=== PATIENT | female | born 1960 | race American Indian/Alaskan Native ===

== ENCOUNTER 2018-01-28 13:34 | Observation (INO) | payer SELFPAY ==
[2018-01-28] MEDS ORDERED: ASPIRIN PO ONE (13:46)
[2018-01-28] MEDS ORDERED: NITROSTAT SL PRN (14:21)
--- NOTE | 2018-01-28 14:23 | Emergency Department Report ---
Blank Doc - Documentation Documentation: Patient is a 57-year-old black female who is complaining of chest discomfort. Patient states a pressure sensation with intermittent sharp pains. There is mild shortness of breath associated. Patient is is attributing most of the pain to a stress however there is no exertional component associated with chest pain. Patient had a recent trip to and from [place] to [facility]. Patient states pain started approximately 2 days after this. On focused physical exam patient' s head is lungs are clear to auscultation abdomen soft nontender heart tones are normal. Patient will be placed on a monitor and troponins labs EKG and chest x-ray will be done.
[2018-01-28 14:42] LABS: BUN/Creatinine Ratio 10; Blood Urea Nitrogen 8 mg/dL (7-17); Calcium 9.7 mg/dL (8.4-10.2); Hemolysis Index 76
--- NOTE | 2018-01-28 15:06 | XRay Report ---
FINAL REPORT EXAM: XR CHEST ROUTINE 2V HISTORY: chest pain TECHNIQUE: Chest, PA and lateral PRIORS: None. FINDINGS: The heart size is normal. Mediastinal contours are normal. Pulmonary vasculature is not congested. The lungs are clear. There are no pleural effusion seen. There is no evidence of pneumothorax. IMPRESSION: There is no acute abnormality identified.
[2018-01-28 15:21] LABS: Basophils % (Auto) 0.1 % (0.0-1.8); Eosinophils # (Auto) 0.1 K/mm3 (0.0-0.4); Eosinophils % (Auto) 1.1 % (0.0-4.3); Hematocrit 38.9 % (30.3-42.9); Hemoglobin 13.2 gm/dl (10.1-14.3); Lymphocytes % (Auto) 32.5 % (13.4-35.0); Mean Corpuscular HGB Conc 34 % (30-34); Mean Corpuscular Hemoglobin 30 pg (28-32); Mean Corpuscular Volume 89 fl (79-97); Monocytes # (Auto) 0.4 K/mm3 (0.0-0.8); Monocytes % (Auto) 5.6 % (0.0-7.3); Platelet Count 280 K/mm3 (140-440); Red Blood Count 4.37 M/mm3 (3.65-5.03); Red Cell Distribution Width 14.3 % (13.2-15.2)
--- NOTE | 2018-01-28 15:47 | Emergency Department Report ---
ED Chest Pain HPI - General Chief Complaint: Chest Pain Stated Complaint: CHEST PAIN/HEADACHE Time Seen by Provider: 01/28/18 14:05 Source: patient Mode of arrival: Ambulatory Limitations: No Limitations - History of Present Illness Initial Comments: 57-year-old female presents to ED with complaints of chest pain. Patient states pain is substernal and radiating into left arm and neck. Usually occurs at rest. She reports pain as sharp and also pressure-like. She denies shortness of breath, nausea, vomiting, diaphoresis. Pt reports driving to [place] and back recently. Denies leg pain or swelling. No PCP. No recent stress test MD Complaint: chest pain -: days(s) (4) Pain Location: substernal Pain Radiation: LUE, neck Severity: moderate Quality: sharp, pressure Consistency: intermittent Improves With: nothing Worsens With: nothing re: denies: nausea, vomting, diaphoresis, dyspnea Other Symptoms: denies: cough, fever, leg swelling Treatments Prior to Arrival: aspirin - Related Data Allergies Allergy/AdvReac Type Severity Reaction Status Date / Time No Known Allergies Allergy Unverified 01/28/18 13:44 Heart Score - HEART Score History: Slightly suspicious EKG: Normal Age: 45-65 Risk factors: No known risk factors Troponin: < normal limit HEART Score: 1 - Critical Actions Critical Actions: 0-3 pts:0.9-1.7%risk of adverse cardiac event.Candidate for discharge ED Review of Systems ROS: Stated complaint: CHEST PAIN/HEADACHE Other details as noted in HPI Comment: All other systems reviewed and negative Constitutional: denies: chills, fever Respiratory: denies: shortness of breath Cardiovascular: chest pain Gastrointestinal: denies: nausea, vomiting Musculoskeletal: denies: joint swelling, myalgia ED Past Medical Hx - Past Medical History Additional medical history: bilateral mastectomy 16years ago - Surgical History Additional Surgical History: bilateral breast - Social History Smoking Status: Never Smoker Substance Use Type: None ED Physical Exam - General Limitations: No Limitations General appearance: alert, in no apparent distress - Head Head exam: Present: atraumatic, normocephalic - Eye Eye exam: Present: normal appearance - ENT ENT exam: Present: mucous membranes moist - Neck Neck exam: Present: normal inspection - Respiratory Respiratory exam: Present: normal lung sounds bilaterally. Absent: respiratory distress - Cardiovascular Cardiovascular Exam: Present: regular rate, normal rhythm - GI/Abdominal GI/Abdominal exam: Present: soft. Absent: tenderness - Extremities Exam Extremities exam: Absent: pedal edema, calf tenderness - Neurological Exam Neurological exam: Present: alert, oriented X3 - Skin Skin exam: Present: warm, dry, intact, normal color ED Course Vital Signs 01/28/18 01/28/18 01/28/18 13:40 14:49 14:54 Temperature 98.6 F 97.8 F Pulse Rate 63 58 L Respiratory 18 16 Rate Blood Pressure 147/92 O2 Sat by Pulse 98 Oximetry ED Medical Decision Making - Lab Data Result diagrams: 01/28/18 14:00 01/28/18 14:00 - EKG Data -: EKG Interpreted by Me EKG shows normal: sinus rhythm, axis (nml), intervals (nml), QRS complexes (nml) , ST-T waves (nml) Rate: normal - EKG Data Interpretation: [facility] - Radiology Data Radiology results: report reviewed, image reviewed - Medical Decision Making 57 yo female with intermittent chest pain with radiation into left arm. EKG, troponin, and d-dimer are unremarkable. Due to pt's age and character pain, also the fact that she has no PCP and has not had a recent stress test, will admit to hospitalist, Dr Grossman. - Differential Diagnosis ACS, PE, pulm edema, chest wall pain, anxiety Critical care attestation.: If time is entered above; I have spent that time in minutes in the direct care of this critically ill patient, excluding procedure time. ED Disposition Clinical Impression: Chest pain Disposition: OP ADMIT IP TO THIS HOSP Is pt being admited?: Yes Condition: Stable Instructions: Chest Pain (ED) Referrals: PRIMARY CARE,MD [Primary Care Provider] - 3-5 Days Time of Disposition: 15:50
--- NOTE | 2018-01-28 20:53 | History and Physical Report ---
History of Present Illness Date of examination: 01/28/18 Date of admission: 01/28/18 15:50 Chief complaint: Left-sided chest pain for 1 week History of present illness: History of Present Illness: 49-year-old female presents with substernal chest pain radiating to the left arm and left-sided neck for 1 week. Chest pains is about 5 on a scale of 1-10. No diaphoresis no palpitations. Chest pain is dull in character no nausea or vomiting. Patient go to [place] and back recently. No shortness of breath. No leg swelling. No fever or chills. No orthopnea. Past Medical History Additional medical history: bilateral mastectomy 16years ago Had chemotherapy and radiation therapy Surgical History Additional Surgical History: Mastectomy Social History Smoking Status: Never Smoker Substance Use Type: None Family history Htn Review of Systems ROS: Stated complaint: CHEST PAIN/HEADACHE Other details as noted in HPI Comment: All other systems reviewed and negative Constitutional: denies: chills, fever Respiratory: denies: shortness of breath Cardiovascular: chest pain Gastrointestinal: denies: nausea, vomiting Musculoskeletal: denies: joint swelling, myalgia 14 point review of systems done--otherwise negative Medications and Allergies Allergies Allergy/AdvReac Type Severity Reaction Status Date / Time No Known Allergies Allergy Unverified 01/28/18 13:44 Active Meds: Active Medications Nitroglycerin (Nitrostat) 0.4 mg SL .Q5MIN PRN PRN Reason: Chest Pain Exam - Physical Exam Narrative exam: Lying in bed comfortably - Constitutional Vitals: Temp Pulse Resp BP Pulse Ox 97.8 F 61 16 142/82 98 01/28/18 14:54 01/28/18 18:00 01/28/18 18:00 01/28/18 18:00 01/28/18 18:00 General appearance: Present: no acute distress, well-nourished - EENT Eyes: Present: PERRL ENT: hearing intact, clear oral mucosa - Neck Neck: Present: supple, normal ROM - Respiratory Respiratory effort: normal Respiratory: bilateral: CTA - Cardiovascular Heart rate: 66 Rhythm: regular Heart Sounds: Present: S1 & S2. Absent: rub, click - Extremities Extremities: pulses symmetrical, No edema Peripheral Pulses: within normal limits - Abdominal General gastrointestinal: Present: soft, non-tender, non-distended, normal bowel sounds Female genitourinary: Present: normal - Integumentary Integumentary: Present: clear, warm, dry - Musculoskeletal Musculoskeletal: gait normal, strength equal bilaterally - Psychiatric Psychiatric: appropriate mood/affect, intact judgment & insight - Neurologic Neurologic: CNII-XII intact, moves all extremities - Allied Health Allied health notes reviewed: nursing, case management Results - Labs CBC & Chem 7: 01/28/18 14:00 01/28/18 14:00 Labs: Laboratory Last Values WBC 6.3 K/mm3 (4.5-11.0) 01/28/18 14:00 RBC 4.37 M/mm3 (3.65-5.03) 01/28/18 14:00 Hgb 13.2 gm/dl (10.1-14.3) 01/28/18 14:00 Hct 38.9 % (30.3-42.9) 01/28/18 14:00 MCV 89 fl (79-97) 01/28/18 14:00 MCH 30 pg (28-32) 01/28/18 14:00 MCHC 34 % (30-34) 01/28/18 14:00 RDW 14.3 % (13.2-15.2) 01/28/18 14:00 Plt Count 280 K/mm3 (140-440) 01/28/18 14:00 Lymph % (Auto) 32.5 % (13.4-35.0) 01/28/18 14:00 Blanco % (Auto) 5.6 % (0.0-7.3) 01/28/18 14:00 Eos % (Auto) 1.1 % (0.0-4.3) 01/28/18 14:00 Baso % (Auto) 0.1 % (0.0-1.8) 01/28/18 14:00 Lymph # 2.0 K/mm3 (1.2-5.4) 01/28/18 14:00 Blanco # 0.4 K/mm3 (0.0-0.8) 01/28/18 14:00 Eos # 0.1 K/mm3 (0.0-0.4) 01/28/18 14:00 Baso # 0.0 K/mm3 (0.0-0.1) 01/28/18 14:00 Seg Neutrophils % 60.7 % (40.0-70.0) 01/28/18 14:00 Seg Neutrophils # 3.8 K/mm3 (1.8-7.7) 01/28/18 14:00 D-Dimer 156.63 ng/mlDDU (0-234) 01/28/18 14:23 Sodium 143 mmol/L (137-145) 01/28/18 14:00 Potassium 4.2 mmol/L (3.6-5.0) 01/28/18 14:00 Chloride 103.3 mmol/L (98-107) 01/28/18 14:00 Carbon Dioxide 21 mmol/L (22-30) L 01/28/18 14:00 Anion Gap 23 mmol/L 01/28/18 14:00 BUN 8 mg/dL (7-17) 01/28/18 14:00 Creatinine 0.8 mg/dL (0.7-1.2) 01/28/18 14:00 Estimated GFR > 60 ml/min 01/28/18 14:00 BUN/Creatinine Ratio 10 % 01/28/18 14:00 Glucose 97 mg/dL (65-100) 01/28/18 14:00 Calcium 9.7 mg/dL (8.4-10.2) 01/28/18 14:00 Troponin T < 0.010 ng/mL (0.00-0.029) 01/28/18 20:08 Short CBC 01/28/18 Range/Units 14:00 WBC 6.3 (4.5-11.0) K/mm3 Hgb 13.2 (10.1-14.3) gm/dl Hct 38.9 (30.3-42.9) % Plt Count 280 (140-440) K/mm3 [facility] 01/28/18 14:00 Sodium 143 Potassium 4.2 Chloride 103.3 Carbon Dioxide 21 L BUN 8 Creatinine 0.8 Glucose 97 Calcium 9.7 Cardiac Enzymes 01/28/18 01/28/18 01/28/18 Range/Units 14:00 16:34 20:08 Troponin T < 0.010 < 0.010 < 0.010 (0.00-0.029) ng/mL - Imaging and Cardiology EKG: report reviewed (normal sinus rhythm heart rate of 66, at [facility]) Chest x-ray: report reviewed (no acute findings) Assessment and Plan Advance Directives: Yes (full code) VTE prophylaxis?: Chemical Plan of care discussed with patient/family: Yes - Patient Problems (1) Chest pain Current Visit: Yes Status: Acute Qualifiers: Chest pain type: unspecified Qualified Code(s): R07.9 - Chest pain, unspecified Plan to address problem: Chest pain rule out NE protocol Lexiscan in the morning Serial troponins negative (2) DVT prophylaxis Current Visit: Yes Status: Acute Plan to address problem: On Lovenox GI prophylaxis initiated
[2018-01-29 16:15] VITALS: BP 132/80
--- NOTE | 2018-01-29 16:51 | Discharge Summary ---
Providers - Providers Date of Admission: 01/28/18 15:50 Date of discharge: 01/29/18 Attending physician: JERAMIE SAL Primary care physician: C WPF DEVELOPER Hospitalization Reason for admission: chest pain Condition: Stable Pertinent studies: Stress test; normal myocardial perfusion, no evidence of ischemia Normal left ventricle function ejection fraction 59% Chest x-ray; no acute abnormality Procedures: Discharge diagnosis; --Atypical chest pain; probably noncardiac, negative stress test, normal LV function --GERD; probably the cause of chest pain, Pepcid Hospital course: 57-year-old female patient with no significant past medical history was admitted through emergency room with chest pain; She was initially evaluated admitted to the hospital symptomatically managed Underwent stress test which was negative for reversible ischemia, normal left ventricular function Symptoms significantly improved, patient's chest pain probably is due to GERD Trial of Pepcid started significant improvement Today patient is comfortable in no new complaints Denies chest pain or shortness of breath, Vital signs stable [id number] evaluation physical examination done by me. Discharge is unremarkable Patient is hemodynamically and clinically stable at discharge Advised to follow third real estate investment analyst for further evaluation should she have recurrent chest pain and shortness of breath Patient is hemodynamically and clinically stable at discharge Discharge diagnosis; --Atypical chest pain; probably noncardiac, stress test negative, ejection fraction normal limits --Possible gastroesophageal reflux disease; advised Pepcid, but advised to follow primary care physician Disposition: DC-01 TO HOME OR SELFCARE Time spent for discharge: 31 min Core Measure Documentation - Palliative Care Palliative Care/ Comfort Measures: Not Applicable - Core Measures Any of the following diagnoses?: none Exam - Constitutional Vitals: Temp Pulse Resp BP Pulse Ox 97.7 F 62 18 132/80 92 01/29/18 15:09 01/29/18 15:09 01/29/18 15:09 01/29/18 15:09 01/29/18 15:09 General appearance: Present: no acute distress, well-nourished - EENT Eyes: Present: PERRL, EOM intact - Neck Neck: Present: supple, normal ROM - Respiratory Respiratory effort: normal Respiratory: negative: rales, rhonchi, wheezing - Cardiovascular Rhythm: regular Heart Sounds: Present: S1 & S2 - Extremities Extremities: no ischemia, No edema - Abdominal General gastrointestinal: Present: soft, non-tender, non-distended, normal bowel sounds - Integumentary Integumentary: Present: clear, warm - Musculoskeletal Musculoskeletal: strength equal bilaterally, generalized weakness - Psychiatric Psychiatric: appropriate mood/affect, cooperative - Neurologic Neurologic: CNII-XII intact, moves all extremities Plan Activity: no restrictions Diet: regular Additional Instructions: If you have recurrent chest pain or shortness of breath , contact M.D. or go to emergency room. He may need extensive cardiac evaluation as outpatient if symptoms do not improve Follow up with: PRIMARY CARE, [Primary Care Provider] - 3-5 Days Prescriptions: Famotidine [Pepcid] 20 mg PO BID #30 tablet
--- NOTE | 2018-01-29 22:57 | Treadmill Report ---
NUCLEAR PERFUSION SCAN REFERRING PHYSICIAN: Hospitalist service. PROTOCOL: The patient was brought to the stress lab in a postoperative state, given 10 mCi of technetium 99m at rest. The patient underwent rest imaging. The patient underwent Lexiscan stress test. At peak stress, the patient was given 26 mCi of technetium 99m. Shortly thereafter, the patient underwent stress imaging. Raw imaging reveals mild GI artifact, no significant motion artifact. SPECT images examined carefully horizontal in long axis, vertical long, and short axis views. There is normal homogenous uptake of radioisotope in all reported segments. No evidence of significant fixed or reversible perfusion defects suggestive of prior infarction or ischemia. Gated wall motion reveals normal systolic performance with a calculated ejection fraction of 59%, no TID. CONCLUSIONS: 1. Normal myocardial perfusion scan without evidence of active ischemia or prior infarction. 2. Normal left ventricular systolic performance without evidence of transient ischemic dilatation or stress-induced segmental wall motion abnormalities. 3. Lexiscan stress test is reported separately. JOB# [id number] SBCarmen/MAGDALENA
== END 2018-01-29 18:00 | disposition home or self-care (01) ==
LOC: ED 13:34 → 4A 15:50
PROVIDERS: ADMIT Internal Medicine; ATTEND Internal Medicine
DX: R07.2 Precordial pain (principal); R51 Headache
CPT/HCPCS: 36415; 71046; 78452; 80048; 84484; 85025; 85379; 93005; 93010; 93017; A9502; G0378

== ENCOUNTER 2019-06-18 07:23 | Emergency (ER) | payer SELFPAY ==
[2019-06-18 07:31] VITALS: BP 157/95
== END 2019-06-18 09:13 | disposition left against medical advice (07) ==
LOC: ED 07:23
DX: R05 Cough (principal); Z53.21 Procedure and treatment not carried out due to patient leaving prior to being seen by health care provider